=== PATIENT | female | born 1960 | race Caucasian/White ===

== ENCOUNTER 2018-04-16 11:22 | Inpatient (IN) | payer MEDICAID, OTHER ==
[~2018-04-16] VITALS: Ht 157.5 cm; Wt 78.9 kg
[2018-04-16 13:59] LABS: CLARITY URINE CLEAR (CLEAR); COLOR URINE YELLOW (YELLOW); KETONES URINE NEGATIVE (NEGATIVE); LEUKOCYTE ESTERASE URINE NEGATIVE (NEGATIVE); NITRITE URINE NEGATIVE (NEGATIVE); OCCULT BLOOD URINE NEGATIVE (NEGATIVE); PH URINE 7.5 (4.5-8.0); PROTEIN URINE NEGATIVE (NEGATIVE); SPECIFIC GRAVITY URINE 1.016 (1.005-1.030)
[2018-04-16 14:38] LABS: BASOPHILS % 0.7 % (0.0-2.0); EOSINOPHILS % 1.3 % (0.0-5.0); HEMATOCRIT. 33.5 % (36.0-48.0); LYMPHOCYTES % 15.5 % (20.0-50.0); MEAN CORPUSCULAR HEMOGLOBIN 28.5 pg (28.0-32.0); MEAN CORPUSCULAR VOLUME 87.2 fL (81.0-99.0); MEAN PLATELET VOLUME 8.6 fl (7.4-10.4); MONOCYTES % 8.5 % (2.0-8.0); PLATELET 386 x1000/uL (130-400); RED BLOOD CELL COUNT 3.85 mill/uL (4.2-5.4); RED CELL DISTRIBUTION WIDTH 12.8 % (11.6-14.6)
[2018-04-16 14:53] LABS: CHLORIDE 104 mEq/L (98-107)
[2018-04-16 14:56] LABS: INR 1.3; PROTHROMBIN TIME 12.7 sec (9.1-11.1)
[2018-04-16] MEDS ORDERED: CEFTRIAXONE 1 G PREMIX 50 ML IV ONE (16:15)
[2018-04-16] MEDS ORDERED: METRONIDAZOLE 500 MG PREMIX 100 ML IV ONE (16:15)
[2018-04-16] MEDS ORDERED: SODIUM CHLORIDE 0.9% 1,000 ML IV ONE (16:15)
[2018-04-16] MEDS ORDERED: DIATR MEGLU/DIATRIZOATE SOLN 30ML ONE (20:21)
[2018-04-16 22:08] VITALS: BP 132/78
[2018-04-16] MEDS ORDERED: IOHEXOL-300 100 ML BOTTLE ONE (22:54)
[2018-04-17] MEDS ORDERED: LEVOFLOXACIN 500MG PREMIX 100 ML IV SCH (01:15)
[2018-04-17] MEDS ORDERED: ONDANSETRON HCL 4MG/2ML INJ IV PRN (01:15)
[2018-04-17] MEDS ORDERED: DEXT 5% WATER + KCL 20MEQ/L 1,000 ML IV SCH (03:00)
[2018-04-17 04:00] VITALS: BP 125/66
[2018-04-17] MEDS: LEVOFLOXACIN 500MG PREMIX 100 ML IV SCH (05:45)
[2018-04-17 08:00] VITALS: BP 125/67
[2018-04-17] MEDS: PANTOPRAZOLE SODIUM 40 MG/VIAL IV SCH (09:23)
[2018-04-17 12:11] VITALS: BP 130/66
[2018-04-17 13:16] LABS: BASOPHILS % 0.8 % (0.0-2.0); EOSINOPHILS % 1.7 % (0.0-5.0); HEMATOCRIT. 33.9 % (36.0-48.0); HEMOGLOBIN. 11.2 g/dL (12.0-16.0); LYMPHOCYTES % 15.9 % (20.0-50.0); MEAN CORPUSCULAR HEMOGLOBIN 28.5 pg (28.0-32.0); MEAN CORPUSCULAR VOLUME 86.3 fL (81.0-99.0); MEAN PLATELET VOLUME 8.6 fl (7.4-10.4); MONOCYTES % 8.8 % (2.0-8.0); NEUTROPHILS % 72.8 % (40.0-76.0); PLATELET 406 x1000/uL (130-400); RED BLOOD CELL COUNT 3.93 mill/uL (4.2-5.4); RED CELL DISTRIBUTION WIDTH 12.9 % (11.6-14.6)
[2018-04-17] MEDS: SODIUM CHL 0.45% + KCL 20MEQ/L 1,000 ML IV SCH (13:24)
[2018-04-17 13:37] LABS: CHLORIDE 106 mEq/L (98-107)
[2018-04-17 16:00] VITALS: BP 111/52
[2018-04-17 20:00] VITALS: BP 126/66
[2018-04-18] VITALS: BP 117/62
[2018-04-18 04:00] VITALS: BP 124/62
[2018-04-18] MEDS: SODIUM CHL 0.45% + KCL 20MEQ/L 1,000 ML IV SCH ×2 (05:32→13:59)
[2018-04-18 08:00] VITALS: BP 125/79
[2018-04-18] MEDS: LEVOFLOXACIN 500MG PREMIX 100 ML IV SCH (08:20)
[2018-04-18] MEDS: PANTOPRAZOLE SODIUM 40 MG/VIAL IV SCH (08:20)
[2018-04-18 12:00] VITALS: BP 124/68
[2018-04-18] MEDS: MORPHINE SULFATE 4 MG/ML CPJ (NOT FOR IM USE) IV PRN ×3 (13:09→19:50)
[2018-04-18 16:00] VITALS: BP 130/65
[2018-04-18 18:23] VITALS: BP 130/65
== END 2018-04-18 18:50 | disposition home or self-care (01) | DRG 281 ==
LOC: ER 12:29 → 6EST 16:10 → ENRESERV 21:30
PROVIDERS: ADMIT Internal Medicine; ATTEND Internal Medicine
DX: C23 Malignant neoplasm of gallbladder (principal); K80.12 Calculus of gallbladder with acute and chronic cholecystitis without obstruction; E44.1 Mild protein-calorie malnutrition; D64.9 Anemia, unspecified; M17.10 Unilateral primary osteoarthritis, unspecified knee; Z68.31 Body mass index [BMI] 31.0-31.9, adult; Z98.51 Tubal ligation status; Z71.6 Tobacco abuse counseling
CPT/HCPCS: 36415; 74177; 76705; 80048; 96365; 96367; 99285; C9113; J0696; J1956; J2270; J3480; J3490; J7060; Q9963; Q9967